=== PATIENT | female | born 1995 | race Two or more races ===

== ENCOUNTER 2025-01-04 10:59 | Emergency (ER) | payer OTHER ==
[~2025-01-04] VITALS: Ht 154.9 cm; Wt 90.3 kg
[2025-01-04 11:13] VITALS: BP 98/63; O2SAT 100
[2025-01-04] MEDS ORDERED: RINGERS SOLUTION,LACTATED 500 ML IV STA (12:09)
[2025-01-04] MEDS ORDERED: CEFTRIAXONE SODIUM 2,000 MG VIAL ONE (12:10)
[2025-01-04] MEDS ORDERED: CEFTRIAXONE SODIUM 2,000 MG VIAL IV STA (12:10)
[2025-01-04 12:30] LABS: BASO % 0.1 % (0.1-1.2); EOS # 0.15 (0.04-0.54); EOS % 2.0 % (0.7-7.0); LYMPH # 1.52 (1.18-3.74); LYMPH % 19.9 % (19.3-53.1); MEAN PLATELET VOLUME 8.40 fl (9.4-12.4); MONO # 0.26 (0.24-0.82); MONO % 3.4 % (4.7-12.5); NEUT # 5.66 (1.56-6.13); NEUT % 74.3 % (34.0-71.1); RED CELL DISTRIBUTION WIDTH 13.1 % (11.6-14.4)
[2025-01-04 12:59] LABS: URINE APPEARANCE Turbid; URINE BILIRRUBIN Negative (NEGATIVE); URINE BLOOD Negative; URINE COLOR Yellow; URINE GLUCOSE Negative (NEGATIVE); URINE LEUKOCYTE Negative; URINE NITRATE Negative; URINE PROTEIN Negative (NEGATIVE); URINE UROBILINOGEN 0.2 E.U./dl
[2025-01-04 13:02] LABS: BUN CREA RATIO 20.0 (7.0-25.0); CREATININE SERUM 0.35 mg/dL (0.55-1.02); GFR 217.19; GLUCOSE FASTING 100.0 mg/dL (65-100); OSMOLALITY SERUM 276.0 MOSM/KG (275-295)
[2025-01-04 13:03] LABS: URINE BACTERIA 598.6 uL (0.0-1933); URINE EPITHELIAL CELLS 21.9 uL (0.0-38.8); URINE RBC 5.5 uL (0.0-20.8); URINE WBC 16.1 uL (0.0-23.2)
[2025-01-04 13:16] LABS: URINE CAST 0.29 uL (0.0-1.40); URINE KETONE 40 (NEGATIVE)
== END 2025-01-04 16:14 | disposition home or self-care (01) ==
LOC: ER 11:11
PROVIDERS: General Practice
DX: O26.892 Other specified pregnancy related conditions, second trimester (principal); R10.2 Pelvic and perineal pain; Z3A.19 19 weeks gestation of pregnancy

== ENCOUNTER → 2025-02-08 10:37 | Outpatient (CLI) | payer OTHER | END | disposition home or self-care (01) | LOC: PRENATAL 10:37 | PROVIDERS: ATTEND Obstetrics & Gynecology Maternal & Fetal Medicine | DX: O44.00 Complete placenta previa NOS or without hemorrhage, unspecified trimester (principal); O99.210 Obesity complicating pregnancy, unspecified trimester; Z3A.21 21 weeks gestation of pregnancy ==

== ENCOUNTER → 2025-04-04 15:12 | Outpatient (CLI) | payer OTHER | END | disposition home or self-care (01) | LOC: PRENATAL 15:12 | PROVIDERS: ATTEND Obstetrics & Gynecology Maternal & Fetal Medicine | DX: O26.843 Uterine size-date discrepancy, third trimester (principal); O36.8130 Decreased fetal movements, third trimester, not applicable or unspecified; O99.213 Obesity complicating pregnancy, third trimester; O99.013 Anemia complicating pregnancy, third trimester; O36.63X0 Maternal care for excessive fetal growth, third trimester, not applicable or unspecified; Z3A.30 30 weeks gestation of pregnancy ==

== ENCOUNTER 2025-05-15 08:11 | Outpatient (CLI) | payer OTHER | END 2025-05-15 08:12 | disposition home or self-care (01) | LOC: PRENATAL 08:11 | PROVIDERS: ATTEND Obstetrics & Gynecology Maternal & Fetal Medicine | DX: O26.843 Uterine size-date discrepancy, third trimester (principal); O36.8130 Decreased fetal movements, third trimester, not applicable or unspecified; O99.213 Obesity complicating pregnancy, third trimester; O24.419 Gestational diabetes mellitus in pregnancy, unspecified control; O36.63X0 Maternal care for excessive fetal growth, third trimester, not applicable or unspecified; O99.013 Anemia complicating pregnancy, third trimester; Z3A.36 36 weeks gestation of pregnancy ==